=== PATIENT | male | born 1950 | race Caucasian/White ===

== ENCOUNTER 2023-10-12 14:20 | Emergency (ER) | payer MEDICARE, OTHER, SELFPAY ==
[2023-10-12 14:27] VITALS: BP 137/75; BMI 28.0
--- NOTE | 2023-10-12 15:24 | ED.GENMED ---
History of Present Illness
General
Chief Complaint: Skin Problem
Source: patient
Exam Limitations: none
Time Seen by Provider: 10/12/23 15:07
Nursing documentation reviewed up to this point in time: agreed with
Travel History
Have you had any contact with someone who has COVID-19?: No
Do you have any symptoms of coronavirus? Fever > 100 degrees, chills, cough, shortness of breath, sore throat, loss of taste or smell, muscle aches, or headache?: No
History of Present Illness
History of Present Illness:
Patient presents to ED secondary to persistent nonhealing right lower leg wound over the past 3 weeks, which occurred initially when his leg was accidentally hit with a log splitter. He was wearing long pants at that time, and as such, there is no
foreign body involvement. Denies fever or chills. Denies nausea or vomiting. Denies open drainage. Patient was evaluated at urgent care center who referred patient to ED for evaluation.
Review of Systems
Review of Systems
Allergies reviewed?: Yes
All Other Systems: ROS reviewed and negative except as documented in HPI and ROS
Constitutional: Reports no symptoms; Denies fever or chills
Musculoskeletal: Reports no symptoms
Skin: Reports other (Leg wound)
Neurological: Reports no symptoms
Phy Exam
Physical Exam
Physical Exam:
Physical Exam
General: no apparent distress, not acutely ill. afebrile
Head: nc/at. eomi
Neck: supple. normal range of motion
Neuro: alert and oriented. no focal neurological deficits
Skin: RLE: an approx 3cm, c-shaped superficial laceration with minimal serosanguineous drainage. Minimal surrounding erythema noted, without warmth.
Psychiatric: well kept. interactive and cooperative
Extremities: no edema. no calf tenderness.
Course
Vital Signs
Initial and Last Documented VS:
Initial Vital Signs
Temp Pulse Resp BP Pulse Ox
99.1 F 58 16 137/75 99
10/12/23 14:27 10/12/23 14:27 10/12/23 14:27 10/12/23 14:27 10/12/23 14:27
Last Documented Vital Signs
Temp Pulse Resp BP Pulse Ox
99.1 F 58 16 137/75 99
10/12/23 14:27 10/12/23 14:27 10/12/23 14:27 10/12/23 14:27 10/12/23 14:27
MDM/Problems Addressed
MDM/Problems Addressed:
History and exam consistent with leg wound, currently nonhealing, with evidence of potential cellulitic changes. However, wound is well localized, without any systemic symptoms. Patient will be advised to keep the area clean, dry, along with
prescribed antibiotics, doxycycline. Advised to follow-up with his PCP on Monday for reevaluation, or return to ED with worsening symptoms prior to that.
*Critical Care Note
Total Time (30-74mins, 75-104mins- exclusive of procedures): Not Applicable
ED Attending Note
-
Portions of this chart may have been created with voice recognition software.� Occasional wrong word or��sound alike� substitutions may have occurred due to the inherent limitations of voice recognition software.
Discharge Plan
Departure
Patient Disposition: Home (Routine Discharge)
Date of Disposition: 10/12/23
Time of Disposition: 15:28
Patient with high blood pressure during this ER visit?: Yes
Condition: Good
Discharge Problem:
Cellulitis of anterior lower leg
Instructions: Cellulitis (Skin Infection), Adult (DC)
Prescriptions:
New
doxycycline monohydrate 100 mg capsule
100 mg PO BID Qty: 14 0RF
Activity Restrictions/Additional Instructions:
As discussed, please follow-up with your primary care physician for reevaluation on Monday. Please consider return to ED with worsening symptoms, i.e. fever/worsening swelling or redness. Your prescription has been sent electronically to [facility] in [place].
Interventions
Interventions:
*Risk Screen - Suicide Last Done: 10/12/23 14:27
*Neglect/Abuse Screening Last Done: 10/12/23 14:27
*ED COVID-19 Vaccine History Last Done: 10/12/23 14:27
*Nursing Disposition Last Done: 10/12/23 15:58
ED-Skin Assessment Last Done: 10/12/23 15:55
Discharge Date and Time
Discharge Date/Time: 10/12/23 15:59
Print Language: [id number]
== END 2023-10-12 15:59 | disposition home or self-care (01) ==
LOC: EMR 14:20
PROVIDERS: EMERGENCY PHYSICIAN Emergency Medicine; FAMILY PHYSICIAN Internal Medicine
DX: L03.115 Cellulitis of right lower limb (principal)
CPT/HCPCS: 99282